=== PATIENT | male | born 1970 | race Caucasian/White ===

== ENCOUNTER 2016-09-10 17:59 | Emergency (ER) | payer OTHER ==
[2016-09-10 18:16] VITALS: BP 135/77; PULSE 92; RESP 16; TEMP 98.8; O2SAT 96
[2016-09-10] MEDS ORDERED: IPRATROPIUM/ALBUTEROL 3 ML DEYVIAL IH ONE (19:09)
[2016-09-10] MEDS ORDERED: ACETAMINOPHEN 325 MG TAB PO ONE (19:10)
--- NOTE | 2016-09-10 19:14 | UCPHY ---
H & P Time Seen by Provider: 09/10/16 18:57 Patient Type: New HPI/ROS: HPI Cough congestion x1 month. 45-year-old male by private vehicle with his . This patient reports that he has had cough productive of yellow and green sputum, nasal congestion, sinus pressure, fever, ongoing for 1 month. No fevers he was seen in urgent care this last Monday was placed on doxycycline. This was presumably for sinusitis. He complains of continued symptoms. ROS: Constitutional: As above, no chills. No weakness. Eyes: No discharge. No changes in vision. ENT: No sore throat. As above. Respiratory: As above. Cardiac: No chest pain, no palpitations. Gastrointestinal: No abdominal pain, no vomiting, no diarrhea. Genitourinary: No hematuria. No dysuria or increased frequency with urination. Musculoskeletal: No back pain. No neck pain. No myalgias or arthralgias. Skin: No rashes. Neurological: No headache. No focal weakness or altered sensation. Past medical history: Appendectomy, right knee surgery, gout, frequent pneumonias. Denies any history of asthma reactive airway disease. Social history: Here with his . Nonsmoker. No alcohol. Physical Exam: General Appearance: Alert, no distress. This patient is responding to questions appropriately and in full sentences. This patient appears well- hydrated and well-nourished. Eyes: Pupils equal and round no pallor or injection. No lid edema, erythema or injection. ENT, Mouth: Mucous membranes are moist. The pharyngeal tissues are unremarkable. No edema or swelling. No asymmetry suggestive of abscess. No erythema or exudates. Respiratory: There are no retractions, diffuse rhonchi with wheezing on exhalation midlung orosco, left side greater than right side. No tachypnea. Cardiovascular: Regular rate and rhythm. No murmur. Neurological: Motor sensory function is grossly intact. Cranial nerves are normal. Gait is normal. Skin: Warm and dry, no rashes. Musculoskeletal: Neck is supple and nontender. Extremities are symmetrical. All joints range without pain or impingement. Psychiatric: No agitation. No depression. Database: EKG: Imaging: Chest x-ray PA and lateral; the cardiac mediastinal silhouette is unremarkable. No evidence of infiltrate or pneumothorax. No acute cardiopulmonary disease process noted. Interpreted by me. Procedures: Emergency department course: Patient sent for chest x-ray after my evaluation. The patient was quite wheezy on pulmonary exam. I feel there is a reactive airway disease component to his illness. He was given 80 mg of oral prednisone. He will given 2 albuterol/ Atrovent nebulizer treatments. He will be given 1 g of Tylenol and 200 mg of Tessalon Perle. 7:35 p.m., patient re-evaluated. Resting comfortably at this time. He feels better after albuterol/Atrovent nebulizer treatment. He does have this medication at home. Results of his chest x-ray discussed. His vital signs have been reviewed. He is afebrile and his vital signs are otherwise unremarkable. I do not feel that additional antibiotic treatment is indicated at this time. I will have him continue his doxycycline. There is no evidence of pneumonia. Serious bacterial infection is unlikely. He most likely has a viral upper respiratory infection. I will prescribe him nasal steroids for his nasal and sinus congestion. Prednisone 60 mg daily for 3 days without taper and Tessalon Perle and Hycodan cough syrup for treatment of his cough. Supportive care discussed. Ibuprofen dosing discussed. He feels comfortable going home with his . All of his questions were answered. He was discharged in good condition. Differential Diagnosis: The differential diagnosis on this patient includes but is not limited to bronchitis, viral syndrome, influenza, pneumonia. This represents a partial list of diagnoses considered. These considerations are based on history, physical exam, past history, reassessment and diagnostic testing. Smoking Status: Never smoked Constitutional: Initial Vital Signs Temperature (C) 37.1 C 09/10/16 18:11 Heart Rate 92 09/10/16 18:11 Respiratory Rate 16 09/10/16 18:11 Blood Pressure 135/77 H 09/10/16 18:11 O2 Sat (%) 96 09/10/16 18:11 O2 Delivery Mode Room Air Allergies/Adverse Reactions: No Known Allergies Allergy (Verified 09/10/16 18:15) Home Medications: Medication Instructions Recorded Albuterol 09/10/16 Ambien 09/10/16 Benzonatate [Tessalon Pearles] 100 mg PO TID #12 cap 09/10/16 Doxycycline Hyclate 09/10/16 Flonase Nasal [place] 09/10/16 HYDROcodone/HOMATROPINE HYCODA 1 tsp PO Q4-6PRN PRN #120 ml 09/10/16 [Hycodan Syrup (RX)] Uloric 09/10/16 predniSONE [prednisone 20mg (RX)] 60 mg PO DAILY #9 tab 09/10/16 Departure - Departure Disposition: Home, Routine, Self-Care Clinical Impression: Bronchitis, Viral upper respiratory infection Condition: Good Instructions: Upper Respiratory Infection (ED), Acute Bronchitis (ED) Additional Instructions: Read and follow provided instructions. Follow-up with your primary care physician in on Monday or Monday of this week for re-evaluation. Continue your medications as prescribed. Albuterol meter dose inhaler: 1-2 puffs every 2-4 hours as needed for cough and shortness of breath. Flonase nasal steroids: 2 nasal sprays to each nostril daily for 3-4 days then 1 nasal spray to each nostril for an additional 3-4 days. Ibuprofen dosin mg every 6 hours with meals for the next 3 days only. Return to the emergency department for worsening symptoms or other serious concerns. Referrals: Unknown,Unknown [Primary Care Provider] - As per Instructions Prescriptions: Benzonatate [Tessalon Pearles] 100 mg PO TID #12 cap HYDROcodone/HOMATROPINE HYCODA [Hycodan Syrup (RX)] 1 tsp PO Q4-6PRN PRN #120 ml PRN Reason: Cough predniSONE [prednisone 20mg (RX)] 60 mg PO DAILY #9 tab - PQRS PQRS Measurement: Not applicable.
[2016-09-10] MEDS ORDERED: predniSONE 20 MG TAB PO ONE (19:44)
[2016-09-10] MEDS ORDERED: BENZONATATE 100 MG CAP PO ONE (19:44)
== END 2016-09-10 20:14 | disposition home or self-care (01) ==
LOC: CED 17:59
DX: J06.9 Acute upper respiratory infection, unspecified (principal); J20.9 Acute bronchitis, unspecified
CPT/HCPCS: 71020-PO; 99203-PO; G0463-PO